=== PATIENT | female | born 1940 | race Caucasian/White ===

== ENCOUNTER 2021-08-30 12:31 | Inpatient (IN) ==
--- NOTE | 2021-08-30 13:30 | Emergency Department Note ---
Impression & Plan Hypercalcemia, ANITA (acute kidney injury) ADMIT ED Provider Note HPI: The patient is an 81-year-old female with history of hypercalcemia, presents emergency department chief complaint of diarrhea. Patient states she has had some diarrhea and generalized abdominal discomfort for about the past week. She was seen today by her hematology/oncology provider who she sees for hypercalcemia in the [facility] and was advised to come to the emergency department for further assessment given her ongoing diarrhea. I did receive a call from her outpatient provider, Dr. Yun, earlier this morning in regards to her presentation. On arrival here to the ED the patient is hemodynamically stable, she states that she has had diarrhea relatively persistently for the past week as well as a diminished appetite, states this is been nonbloody in nature, denies any vomiting, denies any chest pain. Patient is saturating well on room air on my initial assessment and is otherwise in no acute distress. ROS: -GI: Diarrhea *10 point review systems was conducted and is otherwise negative unless stated above *Outpatient medications and allergy history reviewed PE: General: Alert, NAD HEENT: Normocephalic, atraumatic Eyes: Extraocular eye movement is intact, no scleral erythema Pulmonary: Clear to auscultation bilaterally, no wheezing Cardio: Regular rate and rhythm GI: Abdomen is soft, moderate tenderness to palpation, no guarding or rigidity : No suprapubic tenderness MSK: No evidence of trauma or malformation of the extremities, no edema Skin: No evidence of rash Neuro: Alert, no focal deficits Psychiatric: Cooperative monitoring manager: - An order was placed for continuous cardiac monitoring - Patient was noted to be in sinus rhythm with rate of 80 EKG: Rate: 77 Rhythm: Sinus rhythm Intervals: AK interval prolonged at 212 ms, otherwise within normal limits ST changes: No ST elevation Time: 1403 Medical Decision Making: The patient is an 81-year-old female who presents the emergency department the chief complaint of diarrhea, she was sent by her outpatient hematology/oncology provider for further management as she has been complaining of some weakness, diarrhea, she has had worsening hypercalcemia that is of unknown origin at this time. Patient presented via private vehicle for further assessment after being evaluated today in the office by Dr. Yun from [facility]. On arrival here to the ED the patient is hemodynamically stable, IV was established, lab work obtained, patient was ordered IV fluid bolus. Lab work shows evidence of hypercalcemia 13.3, acute kidney injury with a creatinine of 2.8. CT imaging of the abdomen pelvis was obtained without contrast secondary to renal function and this does not show any evidence of an acute surgical abnormality or colitis. Stool cultures ordered and pending. I did discuss the above findings with Dr. Yun of hematology/oncology, stated that she had normal hormone testing recently including PTH and calcitriol, unclear source for hypercalcemia at this time and he was concerned about hypercalcemia of malignancy he would like the patient admitted for GI consultation given her diarrhea. In addition, last creatinine in the system per Dr. Yun is 1.8 in June 2020. Patient states that she does feel weak and would prefer admission at this time given her lab abnormalities and acute kidney injury. Case was discussed with the on-call hospitalist service, Dr. Mancera, and the patient was admitted to a telemetry bed for further management of hypercalcemia, diarrhea, and acute kidney injury/dehydration. Diagnosis: 1. Hypercalcemia 2. Acute kidney injury 3. Diarrhea Disposition: ADMIT Christian Goyal DO Emergency Medicine Past Med/Surg History Social History Smoking Status: Never smoker Feels Safe at Home: Yes Allergies Allergies Allergy/AdvReac Type Severity Reaction Status Date / Time acetaminophen [From Tylenol] Allergy Unknown Verified 01/10/21 09:22 erythromycin base Allergy Unknown Verified 01/10/21 09:22 fluticasone Allergy Unknown Verified 01/10/21 09:22 [From Advair Diskus] Penicillins Allergy Unknown Verified 01/10/21 09:22 salmeterol Allergy Unknown Verified 01/10/21 09:22 [From Advair Diskus] Home Meds Home Medications Medication Instructions Recorded Confirmed fluticasone propionate 50 INTRANASAL gm 01/13/19 01/10/21 mcg/actuation nasal spray,suspension sodium chloride 0.65 % nasal spray INTRANASAL ml 01/13/19 01/10/21 aerosol sucralfate 1 gram tablet 1 gm PO DAILY tab 01/13/19 01/10/21 vitamins A,C,E-hrck-suhrul 7,160 1 tab PO BID tab 01/13/19 01/10/21 unit-113 mg-100 unit tablet (PreserVision AREDS) calcium carbonate 600 mg-vitamin 2 tab PO DAILY tab 05/01/19 01/10/21 D3 5 mcg (200 unit) tablet cholecalciferol (vitamin D3) 50 2,000 units PO DAILY cap 05/01/19 01/10/21 mcg (2,000 unit) capsule cyanocobalamin (vitamin B-12) 1,000 mcg SL DAILY tab 05/01/19 01/10/21 1,000 mcg sublingual tablet ferrous sulfate 325 mg (65 mg 325 mg PO DAILY tab 05/01/19 01/10/21 iron) tablet magnesium oxide 400 mg PO BID cap 05/01/19 01/10/21 metformin 1,000 mg tablet 1,000 mg PO BID tab 05/01/19 01/10/21 metoprolol succinate 25 mg 25 mg PO DAILY tab 05/01/19 01/10/21 tablet,extended release 24 hr simvastatin 40 mg tablet 40 mg PO DAILY tab 05/01/19 01/10/21 guaifenesin 1,200 mg tablet, 1,200 mg PO BID 09/24/19 01/10/21 extended release 12 hr (Mucinex) lansoprazole 30 mg capsule,delayed 30 mg PO DAILY cap 09/24/19 01/10/21 release loratadine 10 mg capsule 10 mg PO DAILY cap 09/24/19 01/10/21 olmesartan 20 1 tab PO DAILY tab 09/24/19 01/10/21 mg-hydrochlorothiazide 12.5 mg tablet ibuprofen 800 mg tablet PO PRN tab 07/12/20 01/10/21 Previous Rx's Medication Instructions Recorded budesonide-formoterol HFA 80 1 inh INHALATION BID #10.2 g 01/10/21 mcg-4.5 mcg/actuation aerosol inhaler albuterol sulfate 2.5 mg INHALATION Q4H #360 ml 03/07/21 doxycycline hyclate 100 mg capsule 100 mg PO BID #20 cap 03/21/21 Results & Data (ED) Vital Signs Vital Signs - 24 hr 08/30/21 12:34 08/30/21 14:30 08/30/21 15:00 Temperature 36.5 C Temperature Source Oral Pulse Rate 73 79 80 Respiratory Rate 20 17 15 Respiratory Effort / Characteristics Non-Labored Blood Pressure 123/68 132/75 137/77 Blood Pressure Mean 86 94 97 Pulse Oximetry 100 97 98 Oxygen Delivery Method Room Air Sepsis Recent Fever Within 48 Hours No Sepsis New/Unexplained Change in Mental Status N/A Sepsis Action Taken by Nursing No Action Required 08/30/21 16:11 Temperature Temperature Source Pulse Rate 82 Respiratory Rate 13 Respiratory Effort / Characteristics Blood Pressure 132/82 Blood Pressure Mean 98 Pulse Oximetry 99 Oxygen Delivery Method Sepsis Recent Fever Within 48 Hours Sepsis New/Unexplained Change in Mental Status Sepsis Action Taken by Nursing Laboratory Data Result diagrams: 08/30/21 13:29 08/30/21 13:29 Lab Results 08/30/21 08/30/21 08/30/21 Range/Units 13:29 13:29 15:47 WBC 9.06 (4.8-10.8) K/uL RBC 3.96 L (4.2-5.4) M/uL Hgb 12.2 (12.0-16.0) g/dL Hct 36.0 L (37-47) % MCV 90.9 (80-100) fL MCH 30.8 (25-34) pg MCHC 33.9 (32-36) g/dL RDW Std Deviation 47.6 H (36.4-46.3) fL RDW Coeff of Mik 14.3 (11.5-14.5) % Plt Count 339 (130-400) K/uL MPV 9.4 (7.4-10.4) fL Immature Gran % (Auto) 0.3 % Neut % (Auto) 58.0 % Lymph % (Auto) 30.5 % Young % (Auto) 7.8 % Eos % (Auto) 3.1 % Baso % (Auto) 0.3 % Neut # (Auto) 5.25 (1.4-6.5) K/uL Lymph # (Auto) 2.76 (1.2-3.4) K/uL Young # (Auto) 0.71 H (0.11-0.59) K/uL Eos # (Auto) 0.28 (0-0.5) K/uL Baso # (Auto) 0.03 (0-0.2) K/uL Immature Gran # (Auto) 0.03 H (0.00-0.02) K/uL Sodium 135 L (136-145) mmol/L Potassium 3.8 (3.5-5.1) mmol/L Chloride 97 L (98-107) mmol/L Carbon Dioxide 30 (21-32) mmol/L Anion Gap 8 (3-11) BUN 44 H (6-23) mg/dl Creatinine 2.85 H (0.6-1.2) mg/dl Est Cr Clr Drug Dosing Not Reportable Est GFR ( Amer) 17.0 ml/min Est GFR (Non-Af Amer) 14.7 ml/min BUN/Creatinine Ratio 15.4 (10-20) Glucose 102 H (70-99(Fasting)) mg/dl Calcium 13.6 H* (8.5-10.1) mg/dl Total Bilirubin 0.5 (0.2-1.0) mg/dl AST 32 (13-39) U/L ALT 27 (7-52) U/L Alkaline Phosphatase 99 (34-104) U/L Total Protein 6.9 (6.0-8.3) gm/dl Albumin 4.3 (3.4-5.0) gm/dl Globulin 2.6 (2.5-4.0) gm/dl Albumin/Globulin Ratio 1.7 (0.9-2) Lipase 50 (11-82) U/L Urine Color Yellow Urine Appearance Clear (Clear) Urine pH 5.0 (4.5-7.5) Ur Specific [place] 1.011 (1.000-1.030) Urine Protein Negative (Negative) Urine Glucose (UA) Negative (Negative) Urine Ketones Negative (Negative) Urine Blood Negative (Negative) Urine Nitrite Negative (Negative) Urine Bilirubin Negative (Negative) Urine Urobilinogen Negative (Negative) Ur Leukocyte Esterase Negative (Negative) Administered Medications Discontinued Medications Sodium Chloride (Nss 1000ml) 1,000 mls @ 999 mls/hr IV .Q1H1M ONE Stop: 08/30/21 16:00 Last Infusion: 08/30/21 16:14 Dose: 0 mls/hr Documented by: [id number] Admin: 08/30/21 15:03 Dose: 999 mls/hr Documented by: [id number] Imaging Data Radiologist's Impression: Abdomen/Pelvis CT 08/30/21 15:30 CT abd pelvis wo con CLINICAL HISTORY: abd pain, diarrhea COMPARISON STUDY: No previous studies for comparison. CT DOSE: 605.60 mGy.cm TECHNIQUE: Standard CT of the Abdomen and Pelvis was performed without IV contrast. The patient did not receive oral contrast. A dose lowering technique was utilized adhering to the principles of ALARA. FINDINGS: Lung base: The lung bases are clear. There is coronary artery and mitral annular calcification present within a normal size heart. Abdominal cavity: There is no evidence for abdominal mass, adenopathy or ascites. Liver: The liver is homogeneous in attenuation on these limited noncontrast imag es.. Spleen: The spleen is homogeneous in attenuation on these limited noncontrast images. Pancreas: The pancreas is homogeneous in attenuation on these limited noncontrast images. Gall Bladder: The gallbladder is well distended with no evidence for cholelithiasis, wall thickening or pericholecystic edema.. Adrenal glands: The adrenal glands are normal in size and attenuation on these limited noncontrast images. Kidneys: The kidneys are homogeneous in attenuation on these limited noncontrast images. There is no evidence for gross renal mass, calculus or hydronephrosis bilaterally. Bowel: There is a moderate size hiatal hernia with diffuse mucosal thickening within the hiatal hernia and stomach. This could relate to nondistention. How ever, the presence of gastritis or other mucosal abnormality cannot be excluded. The remaining bowel loops are normally placed within the abdomen and pelvis without evidence for dilatation or obstruction. However, the small bowel loops are fluid-filled which can be seen with an ileus versus gastroenteritis. There are no inflammatory changes present. There is no evidence for free air. Bladder: There is no evidence for focal bladder wall thickening, calculus or diverticulum. : There is no evidence for pelvic mass or adenopathy. The patient is status post hysterectomy. Vasculature: There is no evidence for focal aneurysmal dilatation of the abdominal aorta. Atherosclerotic calcification is present. Osseous structures: There is no acute osseous pathology. Degenerative changes are seen within the spine. IMPRESSION: 1. Fluid-filled loops of small bowel without evidence for disproportionate dilatation or obstruction. Findings suggest an ileus versus gastroenteritis. 2. No other evidence for acute intra-abdominal or pelvic abnormality on these limited noncontrast images. 3. Moderate size hiatal hernia with mucosal thickening and mucosal thickening of the stomach. These findings can be seen with nondistention versus gastritis. Other mucosal abnormality cannot be excluded by this study. Follow-up is recommended. 4. Additional nonacute findings are delineated above. ACT 112: Positive. There are findings on this exam that require communication between the performing entity and the patient following Patient Test Result Information Act ([place] Act 112) guidelines. Electronically signed by: Will Solano M.D. 08/30/2021 4:08 PM Discharge Plan Visit Data Chief Complaint: Abdominal Pain Stated Complaint: DIARRHEA, ABDOMINAL PAIN, NAUSEA ED Provider: Christian Goyal Discharge Problem: Hypercalcemia, ANITA (acute kidney injury) Forms Stand Alone Forms: My [facility] Prescriptions Prescriptions: No Action albuterol sulfate 2.5 mg /3 mL (0.083 %) solution for nebulization 2.5 mg inhalation Q4H Qty: 360 RF: 5 doxycycline hyclate 100 mg capsule 100 mg PO BID Qty: 20 RF: 0 sodium chloride 0.65 % aerosol,spray intranasal RF: 0 fluticasone propionate 50 mcg/actuation spray,suspension intranasal RF: 0 sucralfate 1 gram tablet 1 gm PO DAILY RF: 0 PreserVision AREDS [id number],160-113-100 yisl-et-pwer tablet 1 tab PO BID RF: 0 metformin 1,000 mg tablet 1,000 mg PO BID RF: 0 metoprolol succinate 25 mg tablet extended release 24 hr 25 mg PO DAILY RF: 0 calcium carbonate-vitamin D3 600 mg(1,500mg) -200 unit tablet 2 tab PO DAILY RF: 0 cyanocobalamin (vitamin B-12) 1,000 mcg tablet, sublingual 1,000 mcg SL DAILY RF: 0 ferrous sulfate 325 mg (65 mg iron) tablet 325 mg PO DAILY RF: 0 magnesium oxide 400 mg magnesium capsule 400 mg PO BID RF: 0 cholecalciferol (vitamin D3) 50 mcg (2,000 unit) capsule 2,000 units PO DAILY RF: 0 simvastatin 40 mg tablet 40 mg PO DAILY RF: 0 loratadine 10 mg capsule 10 mg PO DAILY RF: 0 olmesartan-hydrochlorothiazide 20-12.5 mg tablet 1 tab PO DAILY RF: 0 lansoprazole 30 mg capsule,delayed release(DR/EC) 30 mg PO DAILY RF: 0 ibuprofen 800 mg tablet PO PRNRF: 0 Mucinex 1,200 mg tablet extended release 12hr 1,200 mg PO BID RF: 0 budesonide-formoterol 80-4.5 mcg/actuation HFA aerosol inhaler 1 inh inhalation BID Qty: 10.2 RF: 5 Referrals Referrals: Samuel Aguilar DO [Primary Care Provider] -
[2021-08-30 13:46] LABS: Basophils # (auto) 0.03 K/uL (0-0.2); Basophils % (auto) 0.3 %; Eosinophils # (auto) 0.28 K/uL (0-0.5); Eosinophils % (auto) 3.1 %; Hemoglobin 12.2 g/dL (12.0-16.0); Immature Granulocytes # (auto) 0.03 K/uL (0.00-0.02); Immature Granulocytes % (auto) 0.3 %; Lymphocytes # (auto) 2.76 K/uL (1.2-3.4); Lymphocytes % (auto) 30.5 %; Mean Corpuscular Hemoglobin 30.8 pg (25-34); Mean Corpuscular Hgb Conc 33.9 g/dL (32-36); Mean Corpuscular Volume 90.9 fL (80-100); Mean Platelet Volume 9.4 fL (7.4-10.4); Monocytes # (auto) 0.71 K/uL (0.11-0.59); Monocytes % (auto) 7.8 %; Neutrophils # (auto) 5.25 K/uL (1.4-6.5); Platelet Count 339 K/uL (130-400); RDW Coefficient of Variation 14.3 % (11.5-14.5); RDW Standard Deviation 47.6 fL (36.4-46.3); Red Blood Count 3.96 M/uL (4.2-5.4); White Blood Count 9.06 K/uL (4.8-10.8)
[2021-08-30 14:35] LABS: Alanine Aminotransferase 27 U/L (7-52); Albumin Globulin Ratio 1.7 (0.9-2); Albumin Level 4.3 gm/dl (3.4-5.0); Alkaline Phosphatase 99 U/L (34-104); Anion Gap 8 (3-11); Aspartate Aminotransferase 32 U/L (13-39); BUN Creatinine Ratio 15.4 (10-20); Bilirubin,Total 0.5 mg/dl (0.2-1.0); Blood Urea Nitrogen 44 mg/dl (6-23); Calcium 13.6 mg/dl (8.5-10.1); Carbon Dioxide 30 mmol/L (21-32); Chloride 97 mmol/L (98-107); Est GFR (Non-African American) 14.7 ml/min; Globulin 2.6 gm/dl (2.5-4.0); Glucose 102 mg/dl (70-99(Fasting)); Lipase 50 U/L (11-82); Potassium 3.8 mmol/L (3.5-5.1); Sodium 135 mmol/L (136-145); Total Protein 6.9 gm/dl (6.0-8.3)
[2021-08-30] MEDS ORDERED: SODIUM CHLORIDE 0.9% 1000ML 1,000 ML IV ONE (15:00)
--- NOTE | 2021-08-30 15:08 | Electrocardiogram Report ---
Test Reason : Blood Pressure : / mmHG Vent. Rate : 077 BPM Atrial Rate : 077 BPM P-R Int : 212 ms QRS Dur : 084 ms QT Int : 394 ms P-R-T Axes : 051 -06 025 degrees QTc Int : 445 ms Sinus rhythm with 1st degree A-V block Poor R wave progression, consider anterior NM vs. lead placement vs. LVH Abnormal ECG No previous ECGs available Confirmed by Davion Shah ([id number]) on 08/30/2021 3:08:07 PM Referred By: REFERRED SELF Confirmed By:Davion Shah
--- NOTE | 2021-08-30 16:10 | CT Scan Report ---
CT abd pelvis wo con CLINICAL HISTORY: abd pain, diarrhea COMPARISON STUDY: No previous studies for comparison. CT DOSE: 605.60 mGy.cm TECHNIQUE: Standard CT of the Abdomen and Pelvis was performed without IV contrast. The patient did not receive oral contrast. A dose lowering technique was utilized adhering to the principles of PEGGY Corado. FINDINGS: Lung base: The lung bases are clear. There is coronary artery and mitral annular calcification presen t within a normal size heart. Abdominal cavity: There is no evidence for abdominal mass, adenopathy or ascites. Liver: The liver is homogeneous in attenuation on these limited noncontrast images.. Spleen: The spleen is homogeneous in attenuation on these limited noncontrast images. Pancreas: The pancreas is homogeneous in attenuation on these limited noncontrast images. Gall Bladder: The gallbladder is well distended with no evidence for cholelithiasis, wall thickening or pericholecystic edema.. Adrenal glands: The adrenal glands are normal in size and attenuation on these limited noncontrast im ages. Kidneys: The kidneys are homogeneous in attenuation on these limited noncontrast images. There is no evidence for gross renal mass, calculus or hydronephrosis bilaterally. Bowel: There is a moderate size hiatal hernia with diffuse mucosal thickening within the hiatal herni a and stomach. This could relate to nondistention. However, the presence of gastritis or other mucosa l abnormality cannot be excluded. The remaining bowel loops are normally placed within the abdomen an d pelvis without evidence for dilatation or obstruction. However, the small bowel loops are fluid-suly led which can be seen with an ileus versus gastroenteritis. There are no inflammatory changes present . There is no evidence for free air. Bladder: There is no evidence for focal bladder wall thickening, calculus or diverticulum. : There is no evidence for pelvic mass or adenopathy. The patient is status post hysterectomy. Vasculature: There is no evidence for focal aneurysmal dilatation of the abdominal aorta. Atheroscler otic calcification is present. Osseous structures: There is no acute osseous pathology. Degenerative changes are seen within the spi ne. IMPRESSION: 1. Fluid-filled loops of small bowel without evidence for disproportionate dilatation or obstruction. Findings suggest an ileus versus gastroenteritis. 2. No other evidence for acute intra-abdominal or pelvic abnormality on these limited noncontrast theresa ges. 3. Moderate size hiatal hernia with mucosal thickening and mucosal thickening of the stomach. These f indings can be seen with nondistention versus gastritis. Other mucosal abnormality cannot be excluded by this study. Follow-up is recommended. 4. Additional nonacute findings are delineated above. ACT 112: Positive. There are findings on this exam that require communication between the performing entity and the patient following Patient Test Result Information Act ([place] Act 112) guidelines. Electronically signed by: Will Solano M.D. 08/30/2021 4:08 PM
[2021-08-30 16:31] LABS: Appearance Urine Clear (Clear); Bilirubin Urine Negative (Negative); Blood Urine Negative (Negative); Color Urine Yellow; Glucose Urine UA Negative (Negative); Ketones Urine Negative (Negative); Leukocyte Esterase Urine Negative (Negative); Nitrite Urine Negative (Negative); Protein Urine Negative (Negative); Specific Gravity Urine 1.011 (1.000-1.030); Urobilinogen Urine Negative (Negative)
--- NOTE | 2021-08-30 17:43 | History & Physical Report ---
Date of Service August 30, 2021 Assessment & Plan (1) Hypercalcemia: Plan: 81yo female with a history of asthma, obesity, diabetes, HTN, GERD, seasonal allergies, cholecystectomy, and a recent history of hypercalcemia presents to the ED by request of her bean dumper/oncologist for further workup of a one- week history of diarrhea and abdominal discomfort in the setting of worsening hypercalcemia. Hypercalcemia, weakness, fatigue Calcium on arrival 13.6 (13.4 when corrected for serum albumin); per ED provider conversation with heme/onc, patient's calcium was 12 last month Differential includes hyperparathyroidism, malignancy, others; unlikely related to meds given no recent med changes Ionized calcium, PTH, PTHrP levels pending; LFTs, lipase, TSH wnl Consider vitamin D metabolite levels if PTH is wnl No indication for urgent calcitriol or bisphosphonate therapy at this time; consider these pending workup results NSS @ 150mL/hr (four bags ordered) Strict I/O's PT/OT ordered, avoid prolonged bedrest Hold home vitamin supplementation ANITA On admission, patient's creatinine 2.8 (unclear baseline, but per ED provider, creatinine was 1.8 in 06/2020; no prior records on hand) ANITA possibly secondary to hypercalcemia, dehydration secondary to diarrhea, others IVF as above; avoid nephrotoxins; hold home benazepril-HCTZ, ibuprofen Trend daily BMP Diarrhea Patient presented with a few months of diarrhea, acutely worsening over the past two weeks and now with weakness and fatigue Differential includes gastroenteritis, carcinoid syndrome, others CT a/p notable for fluid-filled loops of small bowel without evidence of obstruction, suggestive of ileus vs gastroenteritis; also noted with hiatal hernia with gastric mucosal thickening consistent with gastritis; no other acute intraabdominal abnormality noted Stool biofire PCR pending Hold home metformin, magnesium Continue home PPI IVF as above, diet as tolerated Trend daily CBC, BMP DM2 HbA1c level pending, no records available for prior level Patient's home regimen held on admission Continue BSG checks, sliding-scale insulin, hypoglycemic protocol Chronic conditions: HTN: BP only slightly elevated; continue home metoprolol; holding benazepril- HCTZ as above Asthma: SOB at baseline, continue home inhalers GERD: continue home PPI Seasonal allergies: continue home loratadine FEN: NSS@150mL/hr (x4 bags), DM2 diet Code status: full code DVT ppx: SCD knee PT/OT: ordered Dispo: med/surg telemetry (2) ANITA (acute kidney injury): (3) Restrictive lung disease: History of Present Illness Primary Care Provider: Samuel Aguilar, DO 81yo female with a history of asthma, obesity, diabetes, HTN, GERD, seasonal allergies, cholecystectomy, and a recent history of hypercalcemia presents to the ED with a one-week history of diarrhea and abdominal discomfort. Patient was seen earlier today by her heme/onc provider (Dr. Yun at [facility] in [place]) who advised patient to come to the ED due to concern related to patient's diarrhea possibly being related to hypercalcemia of malignancy. Patient was referred to Dr. Yun about one month ago for further workup of hypercalcemia which was originally noticed by her PCP. Per conversation between ED lesson instructor and Dr. Yun, patient's calcium was reported to be ~12 last month, and patient's PTH and calcitriol at that time were normal. Patient reports a few-month history of frequent loose stools which have been worsening over the past two weeks. Patient reports about one liquid BM per 1-2 hours over the past week. Patient noted one episode of diarrhea a few days ago that was blood-tinged, but her BMs have otherwise been nonbloody. Patient also reports fatigue, weakness, and low appetite for 1-2 weeks. Patient has had intermittent mild nausea for the past week with one episode of vomiting about 3- 4 days ago but no vomiting since. Patient notes mild lower abdominal discomfort that comes and goes. Patient also endorses SOB but reports this is no better or worse than her SOB secondary to her baseline asthma. Patient denies fever, chills, night sweats, confusion, CP, polyuria, polydipsia, flank pain, or other symptoms. Patient denies a personal history of cancer but notes her father had liver cancer and her grandfather had leukemia. Patient denies any known personal or family history of thyroid disorders. Upon arrival to the ED, patient was hemodynamically stable. Labwork was notable for hypercalcemia to 13.6 (13.4 when corrected for serum albumin) as well as an ANITA with a creatinine of 2.8 (baseline unclear but last creatinine was 1.8 in June 2020). CT abdomen/pelvis showed fluid-filled loops of small bowel without evidence of obstruction, suggestive of ileus vs gastroenteritis. No other acute intraabdominal abnormality was noted. A moderate hiatal hernia with mucosal thickening was also noted. Allergies Allergy/AdvReac Type Severity Reaction Status Date / Time acetaminophen [From Tylenol] Allergy Unknown Unknown Verified 08/30/21 17:34 erythromycin base Allergy Unknown Unknown Verified 08/30/21 17:34 fluticasone Allergy Unknown Unknown Verified 08/30/21 17:34 [From Advair Diskus] Penicillins Allergy Unknown Unknown Verified 08/30/21 17:34 salmeterol Allergy Unknown Unknown Verified 08/30/21 17:34 [From Advair Diskus] Home Medications Medication Instructions Recorded Confirmed Type fluticasone propionate 50 2 spray INTRANASAL DAILY gm 01/13/19 08/30/21 History mcg/actuation nasal spray,suspension sodium chloride 0.65 % nasal spray 1 spray INTRANASAL DIRECTED PRN 01/13/19 08/30/21 History aerosol ml sucralfate 1 gram tablet 1 gm PO HS tab 01/13/19 08/30/21 History vitamins A,C,A-cfgr-zeoxtd 7,160 1 tab PO BID tab 01/13/19 08/30/21 History unit-113 mg-100 unit tablet (PreserVision AREDS) cyanocobalamin (vitamin B-12) 1,000 mcg SL DAILY tab 05/01/19 08/30/21 History 1,000 mcg sublingual tablet ferrous sulfate 325 mg (65 mg 325 mg PO DAILY tab 05/01/19 08/30/21 History iron) tablet magnesium oxide 400 mg PO BID cap 05/01/19 08/30/21 History metformin 1,000 mg tablet 1,000 mg PO BID tab 05/01/19 08/30/21 History metoprolol succinate 25 mg 25 mg PO DAILY tab 05/01/19 08/30/21 History tablet,extended release 24 hr simvastatin 40 mg tablet 40 mg PO QPM tab 05/01/19 08/30/21 History guaifenesin 1,200 mg tablet, 1,200 mg PO BID PRN 09/24/19 08/30/21 History extended release 12 hr (Mucinex) lansoprazole 30 mg capsule,delayed 30 mg PO DAILY cap 09/24/19 08/30/21 History release loratadine 10 mg capsule 10 mg PO DAILY cap 09/24/19 08/30/21 History budesonide-formoterol HFA 80 1 inh INHALATION BID #10.2 g 01/10/21 08/30/21 Rx mcg-4.5 mcg/actuation aerosol inhaler albuterol sulfate 2.5 mg INHALATION Q4H #360 ml 03/07/21 08/30/21 Rx Lactobacillus acidophilus 10 10,000 mmu cells PO BID 08/30/21 08/30/21 History billion cell capsule (Probiotic) benazepril 20 1 tab PO DAILY 08/30/21 08/30/21 History mg-hydrochlorothiazide 12.5 mg tablet ibuprofen 200 mg tablet 400 mg PO TID PRN 08/30/21 08/30/21 History vitamin B complex 1 tab PO DAILY 08/30/21 08/30/21 History Past Med/Surg History Social History Smoking Status: Never smoker Second Hand Exposure: No; Do You Dip or Chew Tobacco: No; Tobacco Cessation Education Requested by Patient: No Hx Alcohol Use: No Hx Substance Use: No Preferred Language: South Korean Communication Ability: Effective Drive Tester Required: No Beliefs That Will Affect Care: None Current Living Situation: Spouse Other Information That Helps Us Care for You: Yes (past few months diarrhea much worse) Feels Safe at Home: Yes Safety Concerns: Feels Safe At This Time Assistive Devices: Cane and Glasses Review of Systems Review of Systems: See HPI Physical Exam Physical Exam: Constitutional: tired-appearing, no acute distress HEENT: MMM CV: regular rhythm, no murmur appreciated, extremities well-perfused, no LE edema Resp: CTABL, no wheezes/rales/rhonchi appreciated, no increased work of breathing GI: soft, nondistended, mild tenderness to palpation of the lower quadrants, BS normoactive MSK: no gross deformities appreciated Skin: warm, dry, no rash appreciated Neuro: alert, oriented, no focal neurologic deficit appreciated Psych: cooperative, pleasant, appropriate rate/volume/quantity of speech Results & Data Results & Data ([facility]) Vital Signs (Past 12 Hours) Vital Signs Temp Pulse Resp BP Pulse Ox 08/30/21 17:00 80 18 124/74 97 08/30/21 16:11 82 13 132/82 99 08/30/21 15:00 80 15 137/77 98 08/30/21 14:30 79 17 132/75 97 05/24/22 12:34 36.5 C 73 20 123/68 100 Supervising Physician Co-Signing Physician Notes Resident Physician Supervision Note: I interviewed and examined the patient. Discussed with Dr. Hernandez and agree with findings and plan as documented in the note. Any exceptions or clarifications are listed here: Patient is here with increasing calcium and mild confusion was being worked up by Dr. Yun in [place] with her hospital reportedly some previous outpatient work- up was unremarkable and is concerned to send her to [facility] was because of diarrhea and needing gastroenterology. To this end we will treat her h ypercalcemia with intravenous fluids consider bisphosphonate once results are back and consider calcitonin if needed. Examination is nonfocal in any way heart is regular lungs are clear she is actually making some sense that eat some Jell-O and did have any diarrhea since lunchtime. Continue with evaluation PTH PTH RP hydration consideration of bisphosphonate therapy in the future Documented By: Vishnu Mancera MD Resident Activity Tracking Resident Involvement: Resident Care Provided Care Provided: Adult Hospital Medicine
[2021-08-30] MEDS ORDERED: GLUCOSE 10 TABS/TUBE PO PRN (20:42)
[2021-08-30] MEDS ORDERED: DEXTROSE 50% 50 ML SYRINGE IV PRN (20:42)
[2021-08-30] MEDS ORDERED: GLUCOSE 40% GEL 15 GM TUBE PO PRN (20:42)
[2021-08-30] MEDS ORDERED: CARBOHYDRATES FOR HYPOGLYCEMIA PO PRN (20:42)
[2021-08-30] MEDS ORDERED: GLUCAGON FOR INJ 1 MG VIAL SQ PRN (20:42)
[2021-08-30] MEDS: SODIUM CHLORIDE 0.9% 1000ML 1,000 ML IV SCH (20:48)
[2021-08-30] MEDS: ALBUTEROL 0.083% NEBU SOLN 3 ML VIAL INH SCH (21:01)
--- NOTE | 2021-08-30 21:16 | Billing Data ---
Date of Service August 30, 2021 Coding Level of Care Code 62357 Initial Inpt Care Lvl 2
[2021-08-30] MEDS: INSULIN ASPART PER UNIT SC SCH (21:29)
[2021-08-30] MEDS: SIMVASTATIN 40 MG TAB PO SCH (21:45)
[2021-08-30 23:15] LABS: Adenovirus F 40/41 PCR Not Detected (NotDetected); Astrovirus PCR Not Detected (NotDetected); Campylobacter PCR Not Detected (NotDetected); Clostridium diff Toxin A/B PCR Not Detected (NotDetected); Cryptosporidium PCR Not Detected (NotDetected); Cyclospora cayetanensis PCR Not Detected (NotDetected); Entamoeba histolytica PCR Not Detected (NotDetected); Enteroaggregative E.coli(EAEC) Not Detected (NotDetected); Enteropathogenic E.coli (EPEC) Not Detected (NotDetected); Enterotoxigenic E.coli (ETEC) Not Detected (NotDetected); Giardia lamblia PCR Not Detected (NotDetected); Norovirus GI/GII PCR Not Detected (NotDetected); Plesiomonas shigelloides PCR Not Detected (NotDetected); Rotavirus A PCR Not Detected (NotDetected); Salmonella PCR Not Detected (NotDetected); Sapovirus PCR Not Detected (NotDetected); Shiga-like Toxin E.coli (STEC) Not Detected (NotDetected); Shigella/Enteroinvasive E.coli Not Detected (NotDetected); Vibrio cholerae PCR Not Detected (NotDetected); Vibrio species PCR Not Detected (NotDetected); Yersinia enterocolitica PCR Not Detected (NotDetected)
[2021-08-31] MEDS: ALBUTEROL 0.083% NEBU SOLN 3 ML VIAL INH SCH ×6 (00:40→19:48)
[2021-08-31] MEDS: SODIUM CHLORIDE 0.9% 1000ML 1,000 ML IV SCH ×2 (03:53→10:43)
[2021-08-31] MEDS: METOPROLOL SUCC 25MG EXT REL TAB PO SCH (07:32)
[2021-08-31] MEDS: PANTOprazole 40 MG TAB PO SCH (07:33)
[2021-08-31] MEDS: LORATADINE 10 MG TAB PO SCH (07:33)
[2021-08-31] MEDS: FERROUS SULFATE 325 MG TAB PO SCH (07:33)
[2021-08-31] MEDS: FLUTICASONE/VILANTEROL 100/25MCG 14 PUFFS/INHALER INH SCH (07:33)
[2021-08-31 07:56] LABS: Basophils # (auto) 0.04 K/uL (0-0.2); Basophils % (auto) 0.4 %; Eosinophils # (auto) 0.34 K/uL (0-0.5); Eosinophils % (auto) 3.7 %; Hematocrit (blood only) 34.4 % (37-47); Hemoglobin 11.7 g/dL (12.0-16.0); Immature Granulocytes # (auto) 0.01 K/uL (0.00-0.02); Immature Granulocytes % (auto) 0.1 %; Lymphocytes % (auto) 45.1 %; Mean Corpuscular Hemoglobin 30.7 pg (25-34); Mean Corpuscular Volume 90.3 fL (80-100); Mean Platelet Volume 9.1 fL (7.4-10.4); Monocytes # (auto) 0.61 K/uL (0.11-0.59); Monocytes % (auto) 6.7 %; Neutrophils # (auto) 3.99 K/uL (1.4-6.5); Platelet Count 310 K/uL (130-400); RDW Coefficient of Variation 14.5 % (11.5-14.5); RDW Standard Deviation 47.4 fL (36.4-46.3); Red Blood Count 3.81 M/uL (4.2-5.4); White Blood Count 9.09 K/uL (4.8-10.8)
[2021-08-31] MEDS: INSULIN ASPART PER UNIT SC SCH ×4 (08:50→21:43)
[2021-08-31 08:53] LABS: Albumin Globulin Ratio 1.6 (0.9-2); Albumin Level 3.9 gm/dl (3.4-5.0); BUN Creatinine Ratio 15.9 (10-20); Bilirubin,Total 0.6 mg/dl (0.2-1.0); Calcium 12.9 mg/dl (8.5-10.1); Est GFR (African American) 22.4 ml/min; Est GFR (Non-African American) 19.3 ml/min; Globulin 2.5 gm/dl (2.5-4.0); Potassium 3.3 mmol/L (3.5-5.1); Total Protein 6.4 gm/dl (6.0-8.3)
[2021-08-31 09:38] LABS: Estimated Average Glucose 117 mg/dl; Hemoglobin A1C 5.7 % (4.5-5.6)
[2021-08-31] MEDS: NSS + 20MEQ KCL 20 MEQ/1,000 ML BAG IV SCH ×2 (10:59→23:33)
--- NOTE | 2021-08-31 14:02 | Electrocardiogram Report ---
Test Reason : Blood Pressure : / mmHG Vent. Rate : 081 BPM Atrial Rate : 081 BPM P-R Int : 200 ms QRS Dur : 084 ms QT Int : 380 ms P-R-T Axes : 056 008 039 degrees QTc Int : 441 ms Normal sinus rhythm Normal ECG When compared with ECG of 30-AUG-2021 14:03, No significant change was found Confirmed by Davion Shah ([id number]) on 08/31/2021 2:02:31 PM Referred By: REFERRED SELF Confirmed By:Davion Shah
--- NOTE | 2021-08-31 14:16 | Hospitalist Progress Note ---
Date of Service August 31, 2021 Assessment & Plan (1) Hypercalcemia: Plan: 81yo female with a history of asthma, obesity, diabetes, HTN, GERD, seasonal allergies, cholecystectomy, and a recent history of hypercalcemia presents to the ED by request of her desktop manager/oncologist for further workup of a one- week history of diarrhea and abdominal discomfort in the setting of worsening hypercalcemia. Hypercalcemia, weakness, fatigue Calcium on arrival 13.6 (13.4 when corrected for serum albumin); per ED provider conversation with heme/onc, patient's calcium was 12 last month Differential includes hyperparathyroidism, malignancy, others; unlikely related to meds given no recent med changes LFTs, lipase, TSH wnl No indication for urgent calcitriol or bisphosphonate therapy on admission IV fluids Strict I/O's PT/OT ordered, avoid prolonged bedrest Hold home vitamin supplementation ANITA On admission, patient's creatinine 2.8 (unclear baseline, but per ED provider, creatinine was 1.8 in 06/2020; no prior records on hand) ANITA possibly secondary to hypercalcemia, dehydration secondary to diarrhea, others IVF as above; avoid nephrotoxins; hold home benazepril-HCTZ, ibuprofen Trend daily BMP Diarrhea Patient presented with a few months of diarrhea, acutely worsening over the past two weeks and now with weakness and fatigue Differential includes gastroenteritis, carcinoid syndrome, others CT a/p notable for fluid-filled loops of small bowel without evidence of obstruction, suggestive of ileus vs gastroenteritis; also noted with hiatal hernia with gastric mucosal thickening consistent with gastritis; no other acute intraabdominal abnormality noted Stool biofire PCR negative Holding home metformin, magnesium Continue home PPI IVF as above, diet as tolerated Trend daily CBC, BMP DM2 Patient's home regimen held on admission Continue BSG checks, sliding-scale insulin, hypoglycemic protocol Chronic conditions: HTN: BP only slightly elevated; continue home metoprolol; holding benazepril- HCTZ as above Asthma: SOB at baseline, continue home inhalers GERD: continue home PPI Seasonal allergies: continue home loratadine Code status: full code DVT ppx: SCD knee PT/OT: ordered Dispo: Eventual discharge to home (2) ANITA (acute kidney injury): (3) Restrictive lung disease: Admission and Anticipated Discharge Date Admission Date: August 30, 2021 Subjective Alert and oriented. No complaints. Calcium improved to 12.9. Potassium added to IV fluids to correct hypokalemia. LILA inhibitor and diuretic on hold due to acute kidney injury. Calcium supplements have been discontinued. Enteritis symptoms are mild at this point. Stool studies negative. Review of Systems Review of Systems: Constitutional-no fever or chills ENT-no blurred vision, no double vision, no epistaxis, no sore throat Respiratory-no cough, no wheezing, no shortness of breath Cardiac-no palpitations, no chest pain, no syncope GI-no nausea, vomiting, melena, hematochezia. She does have diarrhea -no urinary retention, no urinary incontinence, no dysuria, no hematuria Musculoskeletal-no joint pain, no muscle tenderness Skin-no bruising, no rashes, no pruritus Neuro-no isolated weakness, no paresthesia, no weakness Psych-no depression, no anxiety Physical Exam Physical Exam: General-alert and oriented x3, no fevers, no chills HEENT-head atraumatic and normocephalic, TMs intact bilaterally, pupils equal and reactive to light, extraocular muscles intact Neck-no lymphadenopathy or thyromegaly, trachea midline Chest-clear to auscultation percussion. No rales wheezing or rhonchi Cardiac-regular rate and rhythm, normal S1 and S2, no murmurs Abdomen-normal bowel sounds, nontender, no hepatosplenomegaly Extremities-no cyanosis, clubbing, or edema Neuro-cranial nerves II through XII intact, motor and sensory function within normal limits, strength symmetrical , no focal deficits Psych-normal affect, normal mood Results & Data Results & Data ([facility]) Vital Signs (Past 12 Hours) Vital Signs Temp Pulse Pulse Resp BP Pulse Ox 08/31/21 12:02 36.6 C 81 18 120/53 L 99 08/31/21 11:02 86 16 96 08/31/21 08:33 36.6 C 85 16 126/57 L 96 08/31/21 07:14 82 08/31/21 07:03 83 16 97 08/31/21 04:43 36.5 C 84 18 119/71 94 Laboratory Results 08/31/21 07:38 08/31/21 07:38 PG Care Time/CCT Total # of Minutes Spent Total Time Spent with Patient: Total time spent is greater than 50% in coordination of care (as documented) at patient's floor/unit and/or counseling patient: Coding Level of Care Code 98368 Subseq Hosp Care Lvl 3 Diagnoses Hypercalcemia E83.52 ANITA (acute kidney injury) N17.9 Restrictive lung disease J98.4
[2021-08-31] MEDS: SIMVASTATIN 40 MG TAB PO SCH (21:43)
[2021-09-01] MEDS ORDERED: ALBUTEROL 0.083% NEBU SOLN 3 ML VIAL INH SCH (07:00)
[2021-09-01 07:29] LABS: Basophils # (auto) 0.03 K/uL (0-0.2); Basophils % (auto) 0.4 %; Eosinophils # (auto) 0.26 K/uL (0-0.5); Eosinophils % (auto) 3.8 %; Hematocrit (blood only) 30.3 % (37-47); Hemoglobin 10.3 g/dL (12.0-16.0); Immature Granulocytes # (auto) 0.01 K/uL (0.00-0.02); Immature Granulocytes % (auto) 0.1 %; Lymphocytes % (auto) 41.3 %; Mean Corpuscular Hemoglobin 30.9 pg (25-34); Mean Platelet Volume 9.5 fL (7.4-10.4); Monocytes # (auto) 0.65 K/uL (0.11-0.59); Monocytes % (auto) 9.6 %; Neutrophils # (auto) 3.03 K/uL (1.4-6.5); Neutrophils % (auto) 44.8 %; Platelet Count 286 K/uL (130-400); RDW Coefficient of Variation 14.6 % (11.5-14.5); Red Blood Count 3.33 M/uL (4.2-5.4); White Blood Count 6.78 K/uL (4.8-10.8)
[2021-09-01 07:55] LABS: BUN Creatinine Ratio 14.5 (10-20); Calcium 11.7 mg/dl (8.5-10.1); Creatinine Clr Calc Pharmacy 17.9 ml/min; Est GFR (African American) 22.3 ml/min; Est GFR (Non-African American) 19.2 ml/min; Potassium 3.4 mmol/L (3.5-5.1)
[2021-09-01] MEDS: FLUTICASONE/VILANTEROL 100/25MCG 14 PUFFS/INHALER INH SCH (08:46)
[2021-09-01] MEDS: LORATADINE 10 MG TAB PO SCH (08:48)
[2021-09-01] MEDS: PANTOprazole 40 MG TAB PO SCH (08:48)
[2021-09-01] MEDS: METOPROLOL SUCC 25MG EXT REL TAB PO SCH (08:48)
[2021-09-01] MEDS: FERROUS SULFATE 325 MG TAB PO SCH (08:48)
[2021-09-01] MEDS: INSULIN ASPART PER UNIT SC SCH ×2 (08:49→12:03)
[2021-09-01] MEDS: NSS + 20MEQ KCL 20 MEQ/1,000 ML BAG IV SCH (12:03)
--- NOTE | 2021-09-01 12:07 | Discharge Summary ---
Date of Service September 01, 2021 Admission HPI Per Admitting Provider 81yo female with a history of asthma, obesity, diabetes, HTN, GERD, seasonal allergies, cholecystectomy, and a recent history of hypercalcemia presents to the ED with a one-week history of diarrhea and abdominal discomfort. Patient was seen earlier today by her heme/onc provider (Dr. Yun at [facility] in [place]) who advised patient to come to the ED due to concern related to patient's diarrhea possibly being related to hypercalcemia of malignancy. Patient was referred to Dr. Yun about one month ago for further workup of hypercalcemia which was originally noticed by her PCP. Per conversation between ED community board member and Dr. Yun, patient's calcium was reported to be ~12 last month, and patient's PTH and calcitriol at that time were normal. Patient reports a few-month history of frequent loose stools which have been worsening over the past two weeks. Patient reports about one liquid BM per 1-2 hours over the past week. Patient noted one episode of diarrhea a few days ago that was blood-tinged, but her BMs have otherwise been nonbloody. Patient also reports fatigue, weakness, and low appetite for 1-2 weeks. Patient has had intermittent mild nausea for the past week with one episode of vomiting about 3- 4 days ago but no vomiting since. Patient notes mild lower abdominal discomfort that comes and goes. Patient also endorses SOB but reports this is no better or worse than her SOB secondary to her baseline asthma. Patient denies fever, chills, night sweats, confusion, CP, polyuria, polydipsia, flank pain, or other symptoms. Patient denies a personal history of cancer but notes her father had liver cancer and her grandfather had leukemia. Patient denies any known personal or family history of thyroid disorders. Upon arrival to the ED, patient was hemodynamically stable. Labwork was notable for hypercalcemia to 13.6 (13.4 when corrected for serum albumin) as well as an ANITA with a creatinine of 2.8 (baseline unclear but last creatinine was 1.8 in June 2020). CT abdomen/pelvis showed fluid-filled loops of small bowel without evidence of obstruction, suggestive of ileus vs gastroenteritis. No other acute intraabdominal abnormality was noted. A moderate hiatal hernia with mucosal thickening was also noted. Principal Diagnosis Hypercalcemia, enteritis with diarrhea, acute on chronic kidney disease Discharge Exam General-alert and oriented x3, no fevers, no chills HEENT-head atraumatic and normocephalic, TMs intact bilaterally, pupils equal and reactive to light, extraocular muscles intact Neck-no lymphadenopathy or thyromegaly, trachea midline Chest-clear to auscultation percussion. No rales wheezing or rhonchi Cardiac-regular rate and rhythm, normal S1 and S2, no murmurs Abdomen-normal bowel sounds, nontender, no hepatosplenomegaly Extremities-no cyanosis, clubbing, or edema Neuro-cranial nerves II through XII intact, motor and sensory function within normal limits, strength symmetrical , no focal deficits Psych-normal affect, normal mood Discharge Data Allergies Allergy/AdvReac Type Severity Reaction Status Date / Time acetaminophen [From Tylenol] Allergy Unknown Unknown Verified 08/30/21 17:34 erythromycin base Allergy Unknown Unknown Verified 08/30/21 17:34 fluticasone Allergy Unknown Unknown Verified 08/30/21 17:34 [From Advair Diskus] Penicillins Allergy Unknown Unknown Verified 08/30/21 17:34 salmeterol Allergy Unknown Unknown Verified 08/30/21 17:34 [From Advair Diskus] Consultations 08/30/21 17:05 ED Decision to Admit Stat Ordered Studies 08/30/21 15:30 CT Abd and Pelvis [CT abd pelvis wo con] Stat Hospital Course (1) Hypercalcemia: 81yo female with a history of asthma, obesity, diabetes, HTN, GERD, seasonal allergies, cholecystectomy, and a recent history of hypercalcemia presents to the ED by request of her package worker/oncologist for further workup of a one-week history of diarrhea and abdominal discomfort in the setting of worsening hypercalcemia. Hypercalcemia, weakness, fatigue Calcium on arrival 13.6 (13.4 when corrected for serum albumin); per ED provider conversation with heme/onc, patient's calcium was 12 last month Differential includes hyperparathyroidism, malignancy, others; unlikely related to meds given no recent med changes LFTs, lipase, TSH wnl No indication for urgent calcitriol or bisphosphonate therapy on admission IV fluids administered while hospitalized Strict I/O's PT/OT ordered, avoid prolonged bedrest Hold home vitamin supplementation ANITA On admission, patient's creatinine 2.8 (unclear baseline, but per ED provider, creatinine was 1.8 in 06/2020; no prior records on hand) ANITA possibly secondary to hypercalcemia, dehydration secondary to diarrhea, others Treated with IVF ; avoid nephrotoxins; hold home benazepril-HCTZ, ibuprofen. New med discharge Trend daily BMP Diarrhea Patient presented with a few months of diarrhea, acutely worsening over the past two weeks and now with weakness and fatigue Differential includes gastroenteritis, carcinoid syndrome, others CT a/p notable for fluid-filled loops of small bowel without evidence of obstruction, suggestive of ileus vs gastroenteritis; also noted with hiatal hernia with gastric mucosal thickening consistent with gastritis; no other acute intraabdominal abnormality noted Stool biofire PCR negative Holding home metformin, magnesium. May resume at discharge Continue home PPI IVF as above, diet as tolerated Trend daily CBC, BMP DM2 Patient's home regimen held on admission Continue BSG checks, sliding-scale insulin, hypoglycemic protocol Chronic conditions: HTN: BP only slightly elevated; continue home metoprolol; holding benazepril- HCTZ as above Asthma: SOB at baseline, continue home inhalers GERD: continue home PPI Seasonal allergies: continue home loratadine Code status: full code DVT ppx: SCD knee PT/OT: ordered Dispo: discharge to home today, September 01 (2) ANITA (acute kidney injury): (3) Restrictive lung disease: Total Time Total Time Spent Total Time Spent (In Minutes): 35 minutes Discharge Plan Discharge Items Reason For Visit: HYPERCALCEMIA Follow-up/Referrals: Samuel Aguilar DO [Primary Care Provider] - Medications and DC Order Prescriptions: No Action albuterol sulfate 2.5 mg /3 mL (0.083 %) solution for nebulization 2.5 mg inhalation Q4H Qty: 360 RF: 5 sodium chloride 0.65 % aerosol,spray 1 spray intranasal DIRECTED PRN (Reason: NASAL DRYNESS/CONGESTION) RF: 0 fluticasone propionate 50 mcg/actuation spray,suspension 2 spray intranasal DAILY RF: 0 sucralfate 1 gram tablet 1 gm PO HS RF: 0 PreserVision AREDS [id number] [id number] tablet 1 tab PO BID RF: 0 metformin 1,000 mg tablet 1,000 mg PO BID RF: 0 metoprolol succinate 25 mg tablet extended release 24 hr 25 mg PO DAILY RF: 0 cyanocobalamin (vitamin B-12) 1,000 mcg tablet, sublingual 1,000 mcg SL DAILY RF: 0 ferrous sulfate 325 mg (65 mg iron) tablet 325 mg PO DAILY RF: 0 magnesium oxide 400 mg magnesium capsule 400 mg PO BID RF: 0 simvastatin 40 mg tablet 40 mg PO QPM RF: 0 loratadine 10 mg capsule 10 mg PO DAILY RF: 0 lansoprazole 30 mg capsule,delayed release(DR/EC) 30 mg PO DAILY RF: 0 Mucinex 1,200 mg tablet extended release 12hr 1,200 mg PO BID PRN (Reason: Congestion) RF: 0 budesonide-formoterol 80-4.5 mcg/actuation HFA aerosol inhaler 1 inh inhalation BID Qty: 10.2 RF: 5 benazepril-hydrochlorothiazide 20-12.5 mg tablet 1 tab PO DAILY RF: 0 vitamin B complex Tablet 1 tab PO DAILY RF: 0 ibuprofen 200 mg Tablet 400 mg PO TID PRN (Reason: Pain) RF: 0 Probiotic 10 billion cell Capsule 10,000 mmu cells PO BID RF: 0 Krames/Other Patient Handouts: Managing Type 2 Diabetes Admission Data Admit Date/Time: 08/30/21 18:29 Attending Provider: Charlie Montejo Admit Provider: Vishnu Mancera Primary Care Provider: Samuel Aguilar Other Providers: Vishnu Mancera Coding Level of Care Code D/C DAY MANAGEMENT >30 MINS Diagnoses Hypercalcemia E83.52 ANITA (acute kidney injury) N17.9 Restrictive lung disease J98.4
--- NOTE | 2021-09-01 12:09 | Discharge Summary ---
Date of Service September 01, 2021 Admission HPI Per Admitting Provider 81yo female with a history of asthma, obesity, diabetes, HTN, GERD, seasonal allergies, cholecystectomy, and a recent history of hypercalcemia presents to the ED with a one-week history of diarrhea and abdominal discomfort. Patient was seen earlier today by her heme/onc provider (Dr. Yun at [facility] in [place]) who advised patient to come to the ED due to concern related to patient's diarrhea possibly being related to hypercalcemia of malignancy. Patient was referred to Dr. Yun about one month ago for further workup of hypercalcemia which was originally noticed by her PCP. Per conversation between ED security systems specialist and Dr. Yun, patient's calcium was reported to be ~12 last month, and patient's PTH and calcitriol at that time were normal. Patient reports a few-month history of frequent loose stools which have been worsening over the past two weeks. Patient reports about one liquid BM per 1-2 hours over the past week. Patient noted one episode of diarrhea a few days ago that was blood-tinged, but her BMs have otherwise been nonbloody. Patient also reports fatigue, weakness, and low appetite for 1-2 weeks. Patient has had intermittent mild nausea for the past week with one episode of vomiting about 3- 4 days ago but no vomiting since. Patient notes mild lower abdominal discomfort that comes and goes. Patient also endorses SOB but reports this is no better or worse than her SOB secondary to her baseline asthma. Patient denies fever, chills, night sweats, confusion, CP, polyuria, polydipsia, flank pain, or other symptoms. Patient denies a personal history of cancer but notes her father had liver cancer and her grandfather had leukemia. Patient denies any known personal or family history of thyroid disorders. Upon arrival to the ED, patient was hemodynamically stable. Labwork was notable for hypercalcemia to 13.6 (13.4 when corrected for serum albumin) as well as an ANITA with a creatinine of 2.8 (baseline unclear but last creatinine was 1.8 in June 2020). CT abdomen/pelvis showed fluid-filled loops of small bowel without evidence of obstruction, suggestive of ileus vs gastroenteritis. No other acute intraabdominal abnormality was noted. A moderate hiatal hernia with mucosal thickening was also noted. Principal Diagnosis 35 minutes Discharge Exam General-alert and oriented x3, no fevers, no chills HEENT-head atraumatic and normocephalic, TMs intact bilaterally, pupils equal and reactive to light, extraocular muscles intact Neck-no lymphadenopathy or thyromegaly, trachea midline Chest-clear to auscultation percussion. No rales wheezing or rhonchi Cardiac-regular rate and rhythm, normal S1 and S2, no murmurs Abdomen-normal bowel sounds, nontender, no hepatosplenomegaly Extremities-no cyanosis, clubbing, or edema Neuro-cranial nerves II through XII intact, motor and sensory function within normal limits, strength symmetrical , no focal deficits Psych-normal affect, normal mood Discharge Data Allergies Allergy/AdvReac Type Severity Reaction Status Date / Time acetaminophen [From Tylenol] Allergy Unknown Unknown Verified 08/30/21 17:34 erythromycin base Allergy Unknown Unknown Verified 08/30/21 17:34 fluticasone Allergy Unknown Unknown Verified 08/30/21 17:34 [From Advair Diskus] Penicillins Allergy Unknown Unknown Verified 08/30/21 17:34 salmeterol Allergy Unknown Unknown Verified 08/30/21 17:34 [From Advair Diskus] Consultations 08/30/21 17:05 ED Decision to Admit Stat Ordered Studies 08/30/21 15:30 CT Abd and Pelvis [CT abd pelvis wo con] Stat Total Time Total Time Spent Total Time Spent (In Minutes): 35 minutes Discharge Plan Discharge Items Reason For Visit: HYPERCALCEMIA Discharge Diagnosis: Hypercalcemia, enteritis with diarrhea, acute on chronic kidney disease stage III Activity: Resume your previous activity Non-emergency contact: Primary Care Provider Call non-emergency contact if: you have any medication questions and your symptoms worsen Follow-up/Referrals: Samuel Aguilar DO [Primary Care Provider] - Diet: Carb Consistent or DM2 Addtl Attending Provider Instructions: Stop taking calcium supplements Pending Studies at Discharge: No Stand-Alone Forms: [facility] Casetext, Smoking Cessation Medications and DC Order Prescriptions: Continued albuterol sulfate 2.5 mg /3 mL (0.083 %) solution for nebulization 2.5 mg inhalation Q4H Qty: 360 RF: 5 sodium chloride 0.65 % aerosol,spray 1 spray intranasal DIRECTED PRN (Reason: NASAL DRYNESS/CONGESTION) RF: 0 fluticasone propionate 50 mcg/actuation spray,suspension 2 spray intranasal DAILY RF: 0 sucralfate 1 gram tablet 1 gm PO HS RF: 0 PreserVision AREDS [id number] tablet 1 tab PO BID RF: 0 metformin 1,000 mg tablet 1,000 mg PO BID RF: 0 metoprolol succinate 25 mg tablet extended release 24 hr 25 mg PO DAILY RF: 0 cyanocobalamin (vitamin B-12) 1,000 mcg tablet, sublingual 1,000 mcg SL DAILY RF: 0 ferrous sulfate 325 mg (65 mg iron) tablet 325 mg PO DAILY RF: 0 magnesium oxide 400 mg magnesium capsule 400 mg PO BID RF: 0 simvastatin 40 mg tablet 40 mg PO QPM RF: 0 loratadine 10 mg capsule 10 mg PO DAILY RF: 0 lansoprazole 30 mg capsule,delayed release(DR/EC) 30 mg PO DAILY RF: 0 Mucinex 1,200 mg tablet extended release 12hr 1,200 mg PO BID PRN (Reason: Congestion) RF: 0 budesonide-formoterol 80-4.5 mcg/actuation HFA aerosol inhaler 1 inh inhalation BID Qty: 10.2 RF: 5 benazepril-hydrochlorothiazide 20-12.5 mg tablet 1 tab PO DAILY RF: 0 vitamin B complex Tablet 1 tab PO DAILY RF: 0 ibuprofen 200 mg Tablet 400 mg PO TID PRN (Reason: Pain) RF: 0 Probiotic 10 billion cell Capsule 10,000 mmu cells PO BID RF: 0 Krames/Other Patient Handouts: Managing Type 2 Diabetes Admission Data Admit Date/Time: 08/30/21 18:29 Attending Provider: Charlie Montejo Admit Provider: Vishnu Mancera Primary Care Provider: Samuel Aguilar Other Providers: Vishnu Mancera Coding Level of Care Code D/C DAY MANAGEMENT >30 MINS
--- NOTE | 2021-09-02 06:09 | Electrocardiogram Report ---
Test Reason : Blood Pressure : / mmHG Vent. Rate : 081 BPM Atrial Rate : 081 BPM P-R Int : 202 ms QRS Dur : 078 ms QT Int : 374 ms P-R-T Axes : 059 007 041 degrees QTc Int : 434 ms Normal sinus rhythm Normal ECG When compared with ECG of 31-AUG-2021 06:14, No significant change was found Confirmed by Reyes Glaser ([id number]) on 09/02/2021 6:09:11 AM Referred By: REFERRED SELF Confirmed By:Reyes Glaser
== END 2021-09-01 16:03 | disposition home or self-care (01) | DRG 641 ==
LOC: ED 12:31 → 2S 18:29 → SUATTDRO 18:29 → 2S 18:47